=== PATIENT | female | born 1990 | race Caucasian/White ===

== ENCOUNTER 2022-10-30 14:59 | Emergency (ER) | payer OTHER ==
[~2022-10-30] VITALS: Ht 162.6 cm; Wt 72.6 kg
[~2022-10-30 14:59] MED LIST: HYDR-3917 PO; PRED20TA PO
[2022-10-30 15:00] VITALS: BP_SYST 132
[2022-10-30] MEDS ORDERED: NACL 0.9% 1,000 ML IV ONE (17:45)
[2022-10-30] MEDS ORDERED: DIPHENHYDRAMINE INJ 50 MG/ML VIAL IVP ONE (17:45)
[2022-10-30] MEDS ORDERED: KETOROLAC TROMETHAMINE 30 MG VIAL IVP ONE (17:45)
[2022-10-30] MEDS ORDERED: METOCLOPRAMIDE HCL 10 MG/2 ML VIAL IVP ONE (17:45)
[2022-10-30] MEDS ORDERED: TRAM50TA2 PO (19:56)
[2022-10-30] MEDS ORDERED: METO-290 PO (19:56)
[2022-10-30] MEDS ORDERED: IBUP-1969 PO (19:56)
[2022-10-30 20:16] VITALS: BP_SYST 134
== END 2022-10-30 20:16 | disposition home or self-care (01) ==
LOC: SED 14:59
DX: R51.9 Headache, unspecified (principal); R11.2 Nausea with vomiting, unspecified; M54.2 Cervicalgia; J45.909 Unspecified asthma, uncomplicated; Z79.899 Other long term (current) drug therapy
CPT/HCPCS: 99285; 96374; 70450; 96375; 96361; 76376; 81025; J1200; J1885; J2765; J7030